=== PATIENT | male | born 1975 | race Caucasian/White ===

== ENCOUNTER 2017-02-28 15:18 | Emergency (ER) | payer BC ==
[2017-02-28 16:33] LABS: BASOPHIL % 0.4 % (0-2); PLATELET COUNT 213 x10^3mcL (130-400); RED CELL DISTRIBUTION WIDTH 13.7 % (11.5-14.5)
[2017-02-28 16:47] LABS: CALCIUM 9.3 mg/dL (8.5-10.1); CARBON DIOXIDE 32.5 mmol/L (21-32); CHLORIDE SERUM 100 mmol/L (98-107); CREATININE SERUM 1.2 mg/dL (0.7-1.3); GFR1 > 60 mL/min; GLUCOSE SERUM 130 mg/dL (74-106); POTASSIUM SERUM 4.7 mmol/L (3.5-5.1); SODIUM SERUM 137 mmol/L (136-145)
[2017-02-28 16:52] LABS: ALBUMIN 3.7 g/dL (3.4-5.0); ALKALINE PHOSPHATASE 75 U/L (46-116); ALT/SGPT 24 U/L (16-63); AST/SGOT 15 U/L (15-37); BILIRUBIN TOTAL 0.27 mg/dL (0.20-1.00); C REACTIVE PROTEIN 3.9 mg/dL (<=0.9); TOTAL PROTEIN, SERUM 7.7 g/dL (6.4-8.2); URIC ACID 6.3 mg/dL (3.5-7.2)
[2017-02-28 18:16] VITALS: BP 152/99
== END 2017-02-28 18:16 | disposition home or self-care (01) ==
LOC: ED 15:18
PROVIDERS: Emergency Medicine
DX: M25.531 Pain in right wrist (principal)
CPT/HCPCS: J1885

== ENCOUNTER 2017-03-01 10:24 | Emergency (ER) | payer BC ==
[~2017-03-01] VITALS: Ht 185.4 cm; Wt 146.5 kg
[2017-03-01 11:53] VITALS: BP 155/99
== END 2017-03-01 11:53 | disposition home or self-care (01) ==
LOC: ED 10:24
DX: M25.531 Pain in right wrist (principal); Z79.899 Other long term (current) drug therapy